=== PATIENT | female | born 1940 | race Caucasian/White ===

== ENCOUNTER 2016-08-17 13:21 | Emergency (ER) | payer MEDICARE ==
[~2016-08-17] VITALS: Ht 162.6 cm; Wt 63.0 kg
[~2016-08-17 13:21] MED LIST: FLEX10TA PO; LEVO.075 PO; LORTA5; PERC10TA27 PO; SENN1TAB11 PO
[2016-08-17 13:25] VITALS: BP 137/78; PULSE 88; RESP 16; TEMP 99.2; O2SAT 97
[2016-08-17] MEDS ORDERED: LEVO75TA3 PO (13:37)
--- NOTE | 2016-08-17 13:53 | PD ---
HPI Chief Complaint: Injury Time Seen by Provider: 13:50 Travel History International Travel<30 days: No Contact w/Intl Traveler<30days: No Traveled to known affect area: No History of Present Illness HPI 75-year-old female presents the emergency department with contusion to the left dorsal wrist while closing a drawer 4 days ago while putting away Shirts at home. Patient states she did not have a significant amount of pain right away, but has continued to have swelling over the dorsal rest and most of spreading from the proximal hand to the mid forearm dorsal laterally. Patient has full range of motion without significant pain. She denies numbness or tingling. She is concerned about possible "blood clot". She has no known drug allergies. PFSH Past Medical History Hx Anticoagulant Therapy: No Arthritis: Yes Cardiovascular Problems: Yes (CHOL) Diabetes: No Diminished Hearing: No Thyroid Disease: Yes ?: Not Menopausal: Yes Past Surgical History Cholecystectomy: Yes Tonsillectomy: Yes Social History Alcohol Use: No Tobacco Use: No Substance Use: No Allergies-Medications (Allergen,Severity, Reaction): Coded Allergies: No Known Allergies (Verified , 08/17/16) Reported Meds & Prescriptions Reported Meds & Active Scripts Active Reported Levothyroxine (Levothyroxine Sodium) 75 Mcg Tab 75 Mcg PO DAILY Review of Systems Except as stated in HPI: all other systems reviewed are Neg General / Constitutional: No: Fever Eyes: No: Visual changes HENT: No: Headaches Cardiovascular: No: Chest Pain or Discomfort Respiratory: No: Shortness of Breath Gastrointestinal: No: Abdominal Pain Genitourinary: No: Dysuria Musculoskeletal: Positive: Other (swelling over left dorsal wrist with ecchymosis.), No: Pain Skin: No Rash Neurologic: No: Weakness Psychiatric: No: Depression Endocrine: No: Polydipsia Hematologic/Lymphatic: No: Easy Bruising Physical Exam Narrative GENERAL: Patient is in no acute distress. SKIN: Warm and dry. Normal color. Normal turgor. Patient has area of ecchymosis extending on the left dorsal lateral wrist from the proximal hand to two thirds up the dorsal lateral forearm. There is an area of swelling on the dorsal wrist just proximal to the radial head. There is no open wound or abrasion. There is no sign of cellulitis. HEAD: Atraumatic. Normocephalic. EYES: Pupils equal and round. No scleral icterus. No injection or drainage. ENT: No nasal bleeding or discharge. Mucous membranes pink and moist. Pharynx is clear. NECK: Trachea midline. Neck is supple nontender. CARDIOVASCULAR: Regular rate and rhythm. RESPIRATORY: No accessory muscle use. Clear to auscultation. Breath sounds equal bilaterally. MUSCULOSKELETAL: Extremities without clubbing, cyanosis, or edema. No obvious deformities. Range of motion is full and equal bilaterally without significant pain. NEUROLOGICAL: Awake and alert. No obvious cranial nerve deficits. Motor grossly within normal limits. Five out of 5 muscle strength in the arms and legs. Normal speech. PSYCHIATRIC: Appropriate mood and affect; insight and judgment normal. Data Data Last Documented VS Vital Signs Date Time Temp Pulse Resp B/P Pulse Ox O2 Delivery O2 Flow Rate FiO2 08/17/16 13:25 99.2 88 16 137/78 97 Orders Wrist, Complete ([id number]) (08/17/16 13:47) [facility] Medical Decision Making Medical Screen Exam Complete: Yes Emergency Medical Condition: Yes Differential Diagnosis Contusion. Ecchymosis. Possible fracture. Superficial blood clot. Narrative Course Patient is medically stable at time of exam. X-ray of the left wrist is ordered. No significant findings are noted on x-ray other than soft tissue swelling per radiologist. Patient is not felt to have a DVT based on my physical exam. Patient is to use Izaiah wrapped for comfort and compression. Patient is to use warm compresses followed by ice. Patient is to take 1 aspirin daily as recommended for the next 10 days until resolved. Patient should follow with her primary care physician to ensure resolution or return to emergency Department with worsening symptoms as needed. Diagnosis Primary Impression: Contusion of left wrist, initial encounter Additional Impression: Superficial bruising of wrist Referrals: Primary Care Physician Patient Instructions: Contusion in Adults (ED), General Instructions Additional Instructions: No significant findings are noted on x-ray other than soft tissue swelling per radiologist. Patient is not felt to have a DVT based on my physical exam. Patient is to use Izaiah wrapped for comfort and compression. Patient is to use warm compresses followed by ice. Patient is to take 1 aspirin daily as recommended for the next 10 days until resolved. Patient should follow with her primary care physician to ensure resolution or return to emergency Department with worsening symptoms as needed. Disposition: 01 DISCHARGE HOME Condition: Stable Satnam Caballero Aug 17, 2016 13:53
--- NOTE | 2016-08-17 14:36 | RADHPO ---
EXAM DATE/TIME: 08/17/2016 14:01 [facility] COMPARISON: No previous studies available for comparison. INDICATIONS : Left posterior wrist pain/swelling/bruising/"bump" after hitting on furniture while putting laundry a way. MEDICAL HISTORY : Arthritis. Hypercholesterolemia. Thyroid disease. SURGICAL HISTORY : Tonsillectomy. Cholecystectomy. ENCOUNTER: Initial ACUITY: 3 days PAIN SCORE: 4/10 LOCATION: Left posterior wrist FINDINGS: Normal bone density. Mild soft tissue swelling dorsal aspect of the distal forearm. No fracture or di slocation is seen. CONCLUSION: Soft tissue swelling. Skyler Shrestha MD on August 17, 2016 at 14:34 Board Certified Radiologist. This report was verified electronically.
== END 2016-08-17 14:22 | disposition home or self-care (01) ==
LOC: PHEFT 13:21
DX: S60.212A Contusion of left wrist, initial encounter (principal); W22.8XXA Striking against or struck by other objects, initial encounter; Y93.89 Activity, other specified; Y92.9 Unspecified place or not applicable; Y99.9 Unspecified external cause status
CPT/HCPCS: 73110; 99283